=== PATIENT | female | born 1995 | race Caucasian/White ===

== ENCOUNTER 2019-04-28 17:45 | Emergency (ER) | payer OTHER ==
[~2019-04-28] VITALS: Ht 152.4 cm; Wt 68.9 kg
[2019-04-28 18:04] VITALS: Ht 152.4 cm; Wt 68.9 kg
[2019-04-28 19:57] LABS: BASOPHIL % 0.1 % (0-2); PLATELET COUNT 274 x10^3mcL (130-400)
[2019-04-28 19:58] LABS: RED CELL DISTRIBUTION WIDTH 16.1 % (11.5-14.5)
[2019-04-28 20:04] LABS: CALCIUM 9.3 mg/dL (8.5-10.1); CARBON DIOXIDE 25.4 mmol/L (21-32); CHLORIDE SERUM 105 mmol/L (98-107); CREATININE SERUM 0.7 mg/dL (0.6-1.0); GFR1 > 60 mL/min; GLUCOSE SERUM 84 mg/dL (74-106); POTASSIUM SERUM 3.7 mmol/L (3.5-5.1); SODIUM SERUM 140 mmol/L (136-145)
[2019-04-28 20:09] LABS: UA SPECIFIC GRAVITY <=1.005 (1.005-1.035); microscopic required? YES; urine erythrocyte 1+ (NEGATIVE)
[2019-04-28 20:14] LABS: ALBUMIN 4.2 g/dL (3.4-5.0); ALKALINE PHOSPHATASE 70 U/L (46-116); ALT/SGPT 15 U/L (14-59); AST/SGOT 11 U/L (15-37); BILIRUBIN TOTAL 0.4 mg/dL (0.20-1.00); TOTAL PROTEIN, SERUM 8.1 g/dL (6.4-8.2)
[2019-04-28 20:23] LABS: T3 TOTAL 0.99 ng/mL
[2019-04-28 20:37] LABS: CK-MB 0.6 ng/mL (0-3.6)
[2019-04-28 20:38] LABS: FREE T4 1.14 ng/dL (0.76-1.46); FREE THYROXINE INDEX 3.4 ug/dL (1.4-4.5); T4(THYROXINE) 10.9 ug/dL (4.7-13.3)
[2019-04-28 21:06] LABS: ERYTHROCYTE SED RATE 29 mm/hr (0-20)
[2019-04-28 21:32] VITALS: BP 116/63
== END 2019-04-28 21:32 | disposition home or self-care (01) ==
LOC: ED 17:45
PROVIDERS: Specialist
DX: R07.89 Other chest pain (principal)
CPT/HCPCS: 83880; 84439; 85378; J1885; J7030; J7613; J7644; Q0092